=== PATIENT | female | born 1960 | race Caucasian/White ===

== ENCOUNTER 2017-02-23 17:33 | Emergency (ER) | payer MEDICARE, MEDICAID | END 2017-02-23 18:30 | disposition home or self-care (01) | LOC: SCSER 17:33 | DX: H61.22 Impacted cerumen, left ear (principal); E78.5 Hyperlipidemia, unspecified | CPT/HCPCS: 69210 ==

== ENCOUNTER 2017-04-26 13:15 | Inpatient (IN) | payer MEDICARE, MEDICAID ==
[2017-04-26 14:09] VITALS: BMI 34.5
[2017-04-30] MEDS ORDERED: Vancomycin HCl 1.5 GM in Sodium Chloride 0.9% 250 ML 300 ML IVPB SCH ×2 (06:00→20:00)
[2017-04-30] MEDS ORDERED: Tranexamic Acid 1,000 MG/100 ML BAG ONE ×2 (06:01→09:29)
[2017-04-30] MEDS ORDERED: CEFAZOLIN/Water 2 GM/20 ML SYRINGE ONE (06:01)
[2017-04-30] MEDS ORDERED: Ropivacaine 0.2% HCl/PF 20 ML ONE (06:11)
[2017-04-30] MEDS ORDERED: Midazolam HCl 2 mg/2 ml Vial ONE (06:11)
[2017-04-30] MEDS ORDERED: Fentanyl 100 MCG/2 ML VIAL ONE ×2 (06:11→07:07)
[2017-04-30] MEDS ORDERED: Lidocaine 1% (PF) 30 ML VIAL ONE (06:21)
[2017-04-30] MEDS ORDERED: Bupivacaine/Epinephrine 0.25% 30 ML VIAL ONE (06:49)
[2017-04-30] MEDS ORDERED: Promethazine HCl 25 MG/ML VIAL IM PRN ×3 (07:30→09:37)
[2017-04-30] MEDS ORDERED: Zolpidem Tartrate 5 MG TAB PO PRN ×2 (07:30→07:44)
[2017-04-30] MEDS ORDERED: diphenhydrAMINE 25 MG CAP PO PRN (07:30)
[2017-04-30] MEDS ORDERED: traMADol HCl 50 MG TAB PO PRN ×2 (07:30→07:44)
[2017-04-30] MEDS ORDERED: Tranexamic Acid 1,000 MG in Sodium Chloride 0.9% 100 ML IVPB SCH (07:30)
[2017-04-30] MEDS ORDERED: Ondansetron HCl/PF 4 MG/2 ML Vial IVP PRN ×3 (07:30→09:37)
[2017-04-30] MEDS ORDERED: HYDROcodone/Acetaminophen 10/325 mg Tablet PO PRN ×2 (07:30)
[2017-04-30] MEDS ORDERED: Ketorolac Tromethamine 30 MG/ML VIAL IVP PRN (07:44)
[2017-04-30] MEDS ORDERED: HYDROcodone/Acetaminophen 5/325 mg Tablet PO PRN (07:44)
[2017-04-30] MEDS ORDERED: Ropivacaine HCl/PF 250 ML in Premix Bag 1 BAG NERVE BLCK SCH (07:44)
[2017-04-30] MEDS ORDERED: Fentanyl 100 MCG/2 ML VIAL SLOW IVP PRN (07:46)
[2017-04-30] MEDS ORDERED: Ropivacaine 0.5% HCl/PF (150 MG/30 ML VIAL) ONE (08:38)
[2017-04-30] MEDS ORDERED: PHENYLEPHRINE-NS 100 MCG/ML 10 ML SYRINGE ONE (08:58)
[2017-04-30] MEDS ORDERED: Ketorolac Tromethamine 30 MG/ML VIAL ONE (08:58)
[2017-04-30] MEDS ORDERED: Propofol 200 MG/20 ML VIAL ONE (08:58)
[2017-04-30] MEDS ORDERED: Ondansetron HCl/PF 4 MG/2 ML Vial ONE (08:58)
[2017-04-30] MEDS ORDERED: Promethazine HCl 25 MG/ML VIAL SLOW IVP PRN (09:37)
--- NOTE | 2017-04-30 09:37 | OP ---
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 Specifically , no trochlear groove and lateral subluxation of the patella. 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 Specificall y, no trochlear groove and lateral subluxation of the patella. PROCEDURE PERFORMED: Right total knee replacement using [employer] pinless navigation. SURGEON: Chris Roberts M.D. POLICY OFFICER: Hiram Edmondson PA-C. BLOOD LOSS: Minimal. COMPLICATIONS: None. ANESTHESIA: She had general anesthetic. She also had preoperative blocks. IMPLANTS: To the right knee is a [employer] total knee system. We used a size 4 cruciate retaining f emur. We used a size 3 universal tibial baseplate, a 3 x 9 mm CSX3 tibial bearing and a symmetric 27 x 8 patella. INDICATIONS: Jane is a 56-year-old female who has been having long-term problems with the right k nee. We have tried managing this nonoperatively and unfortunately she could not manage her pain and discomfort at this time. OPERATIVE PROCEDURE: After all appropriate consent forms were explained and signed, Jane was take n back to the operating room and at this time was given general anesthetic. FINDINGS: The patient had severe hypoplastic lateral femoral condyle. She had no trochlea. Her pat becka was chronically subluxed laterally and she had very soft bone. These things were dealt with ind ividually and our final construct gave us a nice central riding patella after we performed a lateral release. Once the lateral release was performed, patella did ride centrally and we had good rotation on the femoral tibial construct navigation. PROCEDURE IN DETAIL: After all appropriate consent forms were explained and signed, the patient was taken back to the Operating Room and at this time was given general anesthetic. Once the level of ane sthesia was appropriate, a well-padded tourniquet was placed on the right leg and the leg was then pr epped and draped in standard surgical fashion. The limb was exsanguinated and tourniquet taken up to 300 mmHg. Midline incision was made with a 10 blade down through the skin and subcutaneous tissue. Cristofer vie electrocautery was used to coagulate any brisk venous bleeding. A new blade was used to make a me dial parapatellar arthrotomy. Small subperiosteal release was performed medially and excess fat pad w as removed. The knee was flexed up to gain access to the femur. The femur was navigated and distal fe moral resection was made. Epicondylar access was used to align our sizing jig and this was pinned in place. We sized our femur to be a size 4, 4:1 cutting block was applied and pinned. Anterior and post erior chamfer cuts were then made. We navigated out our proximal tibia and made our proximal tibial r esection. Spreaders were used to remove any posterior osteophytes off the back of the femur as well a s remaining meniscal tissue. A long alignment claudine was then used to achieve correct rotation of our ti bial baseplate and a size 3 was chosen. This was pinned in place. We trialed the polyethylene and a 3 x 9 mm CSX3 polyethylene gave us full extension and good stability throughout range of motion. Two t owel clips and a saw were used to cut our patella. Three lug nuts were drilled and right patella was trialed which sat nicely in the trochlear groove. We then drilled our femur and punched our tibia. Al l components were removed. The knee was thoroughly irrigated and dried. Cement was mixed into the burke ent gun on the back table. Components were then placed. The knee was held out in full extension until the cement had dried. All excess bone cement was removed. Multiple #2 Vicryl stitches as well as a Quill was used to close our extensor mechanism. 0 Quill followed by a running Monoderm was then used to close the skin. Surgicel glue was then used on the skin. Once this had dried, soft tissue dressing was applied to the limb, tourniquet was let down, and the toes pinked up nicely. The patient was th en awakened and taken to the Recovery Room in stable condition. All counts were correct at the end of the case. The patient did receive preoperative IV antibiotics. The patient was injected with Expare l for postoperative pain relief.
[2017-04-30] MEDS: Sodium Chloride 0.9% 1,000 ML IV SCH ×3 (11:47→22:35)
[2017-04-30] MEDS: Aspirin 325 MG TAB PO SCH ×2 (11:47→19:45)
[2017-04-30] MEDS: FLUoxetine HCl 20 MG CAP PO SCH (11:47)
[2017-04-30] MEDS: Furosemide 40 MG TAB PO SCH (11:48)
[2017-04-30] MEDS: CEFAZOLIN/Water 2 GM/20 ML SYRINGE SLOW IVP SCH ×2 (14:10→22:35)
[2017-04-30] MEDS: traMADol HCl 50 MG TAB PO PRN (21:17)
[2017-04-30] MEDS ORDERED: Cepastat Lozenges 1 LOZ PO PRN (21:47)
[2017-04-30] MEDS: HYDROcodone/Acetaminophen 5/325 mg Tablet PO PRN (22:41)
[2017-05-01] MEDS: HYDROcodone/Acetaminophen 5/325 mg Tablet PO PRN (02:57)
[2017-05-01 05:37] LABS: Hematocrit 30.2 % (36.0-47.0); Mean Platelet Volume 8.5 fL (7.4-10.4); Red Blood Cell (RBC) Count 3.32 mill/uL (4.20-5.40); White Blood Cell (WBC) Count 7.7 thou/uL (4.8-10.8)
[2017-05-01] MEDS: traMADol HCl 50 MG TAB PO PRN (06:23)
--- NOTE | 2017-05-01 07:56 | PRG ---
DATE OF SERVICE: 05/01/2017 Ms. Lilly is doing well postoperatively. She has no complaints. PHYSICAL EXAMINATION: VITAL SIGNS: Temperature 99.0, BP 114/67. LUNGS: Clear. HEART: Reveals no murmurs. IMPRESSION: Stable postop. PLAN: Continue current medications.
[2017-05-01] MEDS: Furosemide 40 MG TAB PO SCH (08:03)
[2017-05-01] MEDS: Aspirin 325 MG TAB PO SCH ×2 (08:03→20:16)
[2017-05-01] MEDS: FLUoxetine HCl 20 MG CAP PO SCH (08:03)
[2017-05-01] MEDS: Senokot S 8.6-50 MG TAB PO SCH ×2 (08:03→20:17)
[2017-05-01] MEDS: Ferrous Gluconate 324 MG TAB PO SCH ×2 (08:04→17:53)
[2017-05-01] MEDS: Multivitamin W/ Minerals 1 TAB PO SCH (08:04)
[2017-05-01] MEDS: Sodium Chloride 0.9% 1,000 ML IV SCH ×2 (16:29→21:16)
[2017-05-01] MEDS: Acetaminophen 325 MG TAB PO PRN (20:17)
[2017-05-02] MEDS: Acetaminophen 325 MG TAB PO PRN ×4 (00:32→23:25)
[2017-05-02 05:18] LABS: Hematocrit 32.2 % (36.0-47.0); White Blood Cell (WBC) Count 9.9 thou/uL (4.8-10.8)
[2017-05-02] MEDS: traMADol HCl 50 MG TAB PO PRN (06:25)
--- NOTE | 2017-05-02 07:58 | PRG ---
DATE OF SERVICE: 05/02/2017 SUBJECTIVE: Ms. Lilly is doing well postoperatively. No medical complaints are noted. PHYSICAL EXAMINATION: VITAL SIGNS: Blood pressure 108/70, temperature 98.9. LUNGS: Clear. HEART: Reveals no murmur. IMPRESSION: Stable postoperative course. PLAN: Our recommendations for Orthopedics can be followed. She can be discharged home on her home m amee, follow up with me on a p.r.n. basis.
[2017-05-02] MEDS: Aspirin 325 MG TAB PO SCH ×2 (10:04→20:25)
[2017-05-02] MEDS: Furosemide 40 MG TAB PO SCH (10:04)
[2017-05-02] MEDS: Senokot S 8.6-50 MG TAB PO SCH ×2 (10:04→20:25)
[2017-05-02] MEDS: Multivitamin W/ Minerals 1 TAB PO SCH (10:04)
[2017-05-02] MEDS: Ferrous Gluconate 324 MG TAB PO SCH ×2 (10:05→17:58)
[2017-05-02] MEDS: FLUoxetine HCl 20 MG CAP PO SCH (10:05)
[2017-05-02] MEDS: Sodium Chloride 0.9% 1,000 ML IV SCH ×2 (17:53→20:21)
[2017-05-02] MEDS: HYDROcodone/Acetaminophen 5/325 mg Tablet PO PRN (20:25)
[2017-05-03] MEDS: Sodium Chloride 0.9% 1,000 ML IV SCH (05:28)
[2017-05-03 05:33] LABS: Hematocrit 29.8 % (36.0-47.0); Mean Platelet Volume 8.1 fL (7.4-10.4); Red Blood Cell (RBC) Count 3.25 mill/uL (4.20-5.40); White Blood Cell (WBC) Count 9.2 thou/uL (4.8-10.8)
--- NOTE | 2017-05-03 07:40 | PRG ---
DATE OF SERVICE: 05/03/2017 SUBJECTIVE: Ms. Lilly is doing well and she has minimal pain postoperatively. OBJECTIVE: VITAL SIGNS: BP 110/72, temperature 97.5, O2 sats 97% on room air. LUNGS: Clear. HEART: Reveals a regular rate and rhythm without murmurs, gallops, or rubs. IMPRESSION: Status post right knee replacement surgery very well postoperatively. PLAN: From my opinion, she can go home. She will resume all home medications. She was previously t aking further management and pain medicines per ortho.
[2017-05-03] MEDS: Multivitamin W/ Minerals 1 TAB PO SCH (08:06)
[2017-05-03] MEDS: Aspirin 325 MG TAB PO SCH (08:06)
[2017-05-03] MEDS: FLUoxetine HCl 20 MG CAP PO SCH (08:06)
[2017-05-03] MEDS: Ferrous Gluconate 324 MG TAB PO SCH (08:06)
[2017-05-03] MEDS: Furosemide 40 MG TAB PO SCH (08:06)
[2017-05-03] MEDS: Senokot S 8.6-50 MG TAB PO SCH (08:07)
[2017-05-03 08:22] VITALS: BP 116/76; TEMP 98.8
[2017-05-03] MEDS ORDERED: CeleCOXIB 100 MG CAP PO SCH (09:00)
== END 2017-05-03 12:12 | disposition home or self-care (01) | DRG 470 ==
LOC: SJJU 04-30 05:31
PROVIDERS: ADMIT Orthopaedic Surgery; ATTEND Orthopaedic Surgery
PROC: 0SRC0J9 Replacement of Right Knee Joint with Synthetic Substitute, Cemented, Open Approach (ICD-10-PCS; principal; 2017-04-30)
PROC: 3E0T3BZ Introduction of Anesthetic Agent into Peripheral Nerves and Plexi, Percutaneous Approach (ICD-10-PCS; 2017-04-30)
DX: M17.11 Unilateral primary osteoarthritis, right knee (principal); I10 Essential (primary) hypertension; Q74.1 Congenital malformation of knee
CPT/HCPCS: 36415; 85027; 87086; C1713; C1776; G8978-GP-CL; G8979-GP-CJ; G8987-GO-CK; G8988-GO-CI; J1885; J2001; J2250; J2405; J2704; J2795; J3010; J3370; J7050

== ENCOUNTER 2017-04-26 13:57 | Outpatient (CLI) | payer MEDICARE, MEDICAID ==
[2017-04-26 15:27] LABS: #Eosinphils 0.2 thou/uL (0.0-0.7); #Lymphocytes 1.9 thou/uL (1.20-3.40); #Monocytes 0.8 thou/uL (0.11-0.59); #Neutrophils 5.2 thou/uL (1.40-6.50); %Basophils 0.4 % (0.0-1.0); %Eosinophils 2.4 % (0.0-10.0); %Monocytes 9.8 % (0.0-10.0); Hematocrit 36.4 % (36.0-47.0); Mean Platelet Volume 8.1 fL (7.4-10.4); Red Blood Cell (RBC) Count 3.97 mill/uL (4.20-5.40); White Blood Cell (WBC) Count 8.1 thou/uL (4.8-10.8)
[2017-04-26 15:28] LABS: Bilirubin Negative (Negative); Blood, Urine Negative (Negative); Glucose, Urine (Dipstick) Negative (Negative); Ketone, Urine Negative (Negative); Nitrite Negative (Negative); Protein, Urine (Dipstick) Negative (Neg-Trace); Urobilinogen 0.2 mg/dL (0.2-1.0)
[2017-04-26 15:40] LABS: Prothrombin Time 13.5 SEC (12.0-14.7)
[2017-04-26 15:47] LABS: Hyaline Casts/LPF NONE SEEN LPF (0-3 Hyaline); RBC/HPF 0-3 HPF (0-3); Squamous Epithelial 0-3 HPF (0-3); WBC/HPF 0-3 HPF (0-3)
[2017-04-26 15:48] LABS: Anion Gap 13 mmol/L (10-20); BUN (Urea Nitrogen) 30 mg/dL (9.8-20.1); Bacteria/HPF Rare-Few HPF (None Seen); Calc. Creatinine Clearance 0 mL/min (70-130); Calcium 9.6 mg/dL (7.8-10.44); Carbon Dioxide 28 mmol/L (22-29); Chloride 100 mmol/L (98-107); Estimated GFR-MDRD 63
--- NOTE | 2017-05-12 13:27 | EKG ---
Test Reason : Blood Pressure : / mmHG Vent. Rate : 071 BPM Atrial Rate : 071 BPM P-R Int : 188 ms QRS Dur : 092 ms QT Int : 426 ms P-R-T Axes : 043 108 018 degrees QTc Int : 462 ms Normal sinus rhythm Rightward axis Cannot rule out Anterior infarct , age undetermined Abnormal ECG When compared with ECG of 06-JUL-2015 09:20, Nonspecific T wave abnormality now evident in Inferior leads Confirmed by MICHEAL DAN MD ([id number]) on 05/12/2017 1:26:52 PM Referred By: RAZ Confirmed By:MICHEAL DAN MD
== END 2017-04-26 13:58 | disposition home or self-care (01) ==
LOC: LABBT 13:57
PROVIDERS: ATTEND Orthopaedic Surgery
DX: Z01.812 Encounter for preprocedural laboratory examination (principal); M25.561 Pain in right knee
CPT/HCPCS: 80048; 81001; 85025; 85610; 86850; 86900; 86901; 87081; 93005; 93010

== ENCOUNTER 2017-11-06 13:53 | Outpatient (CLI) | payer MEDICARE, MEDICAID ==
--- NOTE | 2017-11-06 16:26 | MRI ---
MRI LUMBAR SPINE WITHOUT CONTRAST: 11/06/17 HISTORY: Chronic low back pain, worsening. History of steroid injections. COMPARISON: None. TECHNIQUE: MRI lumbar spine is performed without intravenous gadolinium administration. Multisequential, multipl ne imaging is performed. FINDINGS: There is appropriate T1 marrow signal intensity throughout the lumbar vertebrae. Lumbar spine vertebr al height is maintained. There is no fracture. 4.3 mm of anterolisthesis of L3 upon L4. No associated spondylolysis. There is a mild chronic compression fracture involving T12 with mild retropulsion. No significant STI R hyperintensity to suggest an acute process. Symmetric signal intensity to the psoas muscles. Appropriate signal intensity to the visualized solid organs. The conus medullaris terminates at the superior aspect of L1. T11-T12: No significant central canal stenosis or foraminal narrowing. Mild central canal stenosis d ue to retropulsion. T12-L1: Adequate disc hydration. No significant central canal stenosis or foraminal narrowing. L1-L2: Adequate disc hydration. No significant central canal stenosis or foraminal narrowing. L2-L3: Adequate disc hydration. No significant central canal stenosis or foraminal narrowing. L3-L4: Adequate disc hydration. No significant central canal stenosis. Foramina are patent. L4-L5: Desiccation with mild loss of disc space height. There is a generalized disc bulge with minima l flattening of the ventral thecal sac. The ligamentum flavum thickening and facet hypertrophy are pr esent. There is mild narrowing of the right subarticular zone with partial obscuration of the addis ing right L5 nerve root. No significant stenosis of the left subarticular zone. Small amount of fluid in both facet joints. There is mild bilateral facet hypertrophy. Mild bilateral foraminal narrowing. L5-S1: Moderate loss of disc space height. Generalized disc bulge without significant central canal s tenosis. Mild to moderate bilateral foraminal narrowing. IMPRESSION: Degenerative changes of the lumbar spine as above. POS: ALNDRY
== END 2017-11-06 13:54 | disposition home or self-care (01) ==
LOC: SCSMRI 13:53
PROVIDERS: ATTEND Orthopaedic Surgery
DX: M54.5 Low back pain (principal); M47.896 Other spondylosis, lumbar region
CPT/HCPCS: 72148

== ENCOUNTER 2017-12-12 09:31 | Outpatient (CLI) | payer MEDICARE, MEDICAID ==
--- NOTE | 2017-12-12 10:46 | RAD ---
3 VIEWS LUMBAR SPINE: Date: 12/12/17 HISTORY: Spondylosis without myelopathy or radiculopathy. COMPARISON: None. FINDINGS: Lateral neutral, lateral flexion, and lateral extension views of the lumbar spine are submitted for i nterpretation. FINDINGS: There are five lumbar-type vertebral bodies. Lumbar spine vertebral body height is maintained. There is 0.7 cm anterolisthesis of L4 upon L5 in the neutral position. Upon flexion, there is 1.0 cm of ant erolisthesis of L4 upon L5. Upon extension, there is 0.7 cm. No associated spondylolysis. Compression fracture at T12 is again noted. IMPRESSION: Grade I anterolisthesis of L4 upon L5, worsening upon flexion. POS: LANDRY
== END 2017-12-12 09:32 | disposition home or self-care (01) ==
LOC: RAD 09:31
PROVIDERS: ATTEND Nurse Practitioner Family
DX: M47.817 Spondylosis without myelopathy or radiculopathy, lumbosacral region (principal); M43.16 Spondylolisthesis, lumbar region
CPT/HCPCS: 72100

== ENCOUNTER 2019-02-17 11:44 | Outpatient (CLI) | payer MEDICARE, MEDICAID ==
--- NOTE | 2019-02-17 13:25 | RAD ---
LEFT HIP 2 VIEWS: Date: 02/17/19 HISTORY: Fall with injury. COMPARISON: 09/15/17 left hip films. FINDINGS: No evidence of fracture. No osseous abnormality. No interval change from prior exam. IMPRESSION: No acute findings. POS: LANDRY
== END 2019-02-17 11:45 | disposition home or self-care (01) ==
LOC: SCSRAD 11:44
PROVIDERS: ATTEND Family Medicine
DX: M25.552 Pain in left hip (principal)

== ENCOUNTER 2019-03-24 11:56 | Outpatient (CLI) | payer MEDICARE, MEDICAID ==
--- NOTE | 2019-03-24 13:01 | MRI ---
MRI LUMBAR SPINE NONCONTRAST: HISTORY: Lumbar radiculopathy. Back pain. COMPARISON: 11/06/2017. FINDINGS: Stable mild compression fracture at T12. No significant STIR hyperintensity to suggest acute fracture . Mild retropulsion. With regard to the lumbar spine, vertebral body heights are maintained. No fracture. Spondylolisthesis: 5.1 mm of anterolisthesis of L4 upon L5 (previously measuring 4.3 mm). 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 Appropriate signal intensity in the visualized solid organs. Symmetric signal intensity of the visual ized paraspinal muscles. Conus medullaris terminates at the anterior aspect of T12. T12 vertebral body: Stable mild central canal stenosis due to retropulsion. T12-L1:Adequate disc hydration. No significant central canal stenosis or significant neural foraminal narrowing. L1-L2:Adequate disc hydration. No significant central canal stenosis or significant neural foraminal narrowing. L2-L3:Adequate disc hydration. No significant central canal stenosis or significant neural foraminal narrowing. There is mild ligament flavum thickening. L3-L4:Adequate disc hydration. No significant central canal stenosis. Minimal left and right paracent ral disc bulges. Mild bilateral foraminal narrowing due to disc material. L4-L5:Disc desiccation with mild loss of disc space height. Broad-based disc bulge, abuts and mildly deforms the ventral thecal sac. Minimal encroachment upon bilateral subarticular zones. No significant mass effect or obscuration of either traversing L5 nerve root. There is bilateral facet h ypertrophy. Small amount of fluid in the right facet joint. Mild bilateral neural foraminal narrowing. L5-S1:Desiccation with severe loss of disc space height. Central disc protrusion abuts the thecal sac . No significant central canal stenosis. Moderate bilateral neural foraminal narrowing. IMPRESSION: 1. Grade 1 anterolisthesis of L4 upon L5. 2. No significant central canal stenosis throughout the lumbar spine. 3. Stable narrowing of the left and right subarticular zone at L4-L5. 4. Redemonstration of neural foraminal narrowing as described above, greatest at the L5-S1 level. 5. 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 Transcribed Date/Time: 03/24/2019 2:23 PM
== END 2019-03-24 11:57 | disposition home or self-care (01) ==
LOC: MRI 11:56
PROVIDERS: ATTEND Anesthesiology Pain Medicine
DX: M54.16 Radiculopathy, lumbar region (principal); M43.16 Spondylolisthesis, lumbar region; M48.061 Spinal stenosis, lumbar region without neurogenic claudication; M48.07 Spinal stenosis, lumbosacral region; M53.3 Sacrococcygeal disorders, not elsewhere classified
CPT/HCPCS: 72148

== ENCOUNTER 2020-05-12 08:31 | Outpatient (CLI) | payer MEDICARE, MEDICAID ==
--- NOTE | 2020-05-12 12:34 | NM ---
Radionucleotide bone scan HISTORY: Back pain. FINDINGS: Heterogeneously increased uptake at the shoulders. Photopenic defects at each knee consiste nt with prostheses. Mildly heterogeneous uptake at the L5-S1 facets. Uptake within the urinary bladder partially obscures the pubic symphysis. IMPRESSION : Mild osteoarthritic changes. Bilateral knee prostheses. No acute abnormalities are demonstrated.
== END 2020-05-12 08:32 | disposition home or self-care (01) ==
LOC: NM 08:31
PROVIDERS: ATTEND Anesthesiology Pain Medicine
DX: S32.009A Unspecified fracture of unspecified lumbar vertebra, initial encounter for closed fracture (principal); M19.90 Unspecified osteoarthritis, unspecified site; Z96.653 Presence of artificial knee joint, bilateral
CPT/HCPCS: 78306; A9503

== ENCOUNTER 2021-06-30 07:40 | Outpatient (CLI) | payer MEDICARE, MEDICAID | END 2021-06-30 07:41 | disposition home or self-care (01) | LOC: NM 07:40 | PROVIDERS: ATTEND Specialist | DX: E21.3 Hyperparathyroidism, unspecified (principal) | CPT/HCPCS: 78072; A9500 ==